=== PATIENT | male | born 1945 | race Native Hawaiian/Other Pacific Islander ===

== ENCOUNTER 2018-07-06 20:54 | Inpatient (IN) | payer MEDICARE ==
--- NOTE | 2018-07-06 21:34 | ED PDOC ---
Upper Extremity Pain/Injury Time Seen by Provider: 07/06/18 21:00 Chief Complaint (Nursing): Upper Extremity Problem/Injury Chief Complaint (Provider): Upper Extremity Problem/Injury History Per: Patient, Family History/Exam Limitations: no limitations Onset/Duration Of Symptoms: Hrs (x4-5) Current Symptoms Are (Timing): Still Present Additional Complaint(s): 73 y/o male with a PMHx of Atrial Fibrillation, HTN, hypercholesterolemia and DM presents to the ED with son for evaluation of severe left arm pain, onset 4 to 5 hours prior to arrival. Given patient's extensive medical history and questionable findings of ST elev on anterior leads, a Code Heart was called. Patient reports pain at onset was approximately an 8/10 and is associated with diaphoresis and abdominal discomfort. Patient reports of taking two Tylenol tablets with some relief of pain. Patient denies chest pain, cough and congestion. As per son, patient is taking Eliquis and metafrmin. Son reports patient is complaint with medications and took last took them earlier this morning and has not taken his second dose tonight. Son additionally reports the patient recently got his flu vaccination on Friday. PMD: Dr. Solis from [facility] Allergies: Naproxen Past Medical History Reviewed: Historical Data, Nursing Documentation, Vital Signs Vital Signs: Last Vital Signs Temp 97.9 F 07/06/18 21:08 Pulse 99 H 07/06/18 21:08 Resp 16 07/06/18 21:08 BP 146/86 07/06/18 21:08 Pulse Ox 100 07/06/18 21:08 - Medical History PMH: Atrial Fibrillation, Diabetes, HTN, Hypercholesterolemia - Surgical History Surgical History: No Surg Hx - Family History Family History: States: Unknown Family Hx - Social History Current smoker - smoking cessation education provided: No Alcohol: None Drugs: Denies - Allergies Allergies/Adverse Reactions: Allergies Allergy/AdvReac Type Severity Reaction Status Date / Time No Known Allergies Allergy Verified 07/06/18 21:01 Review of Systems ROS Statement: Except As Marked, All Systems Reviewed And Found Negative Constitutional: Positive for: Sweats ENT: Negative for: Nose Congestion Cardiovascular: Negative for: Chest Pain Respiratory: Negative for: Cough Gastrointestinal: Positive for: Abdominal Pain (discomfort) Musculoskeletal: Positive for: Arm Pain (left arm ) Physical Exam - Reviewed Nursing Documentation Reviewed: Yes Vital Signs Reviewed: Yes - Physical Exam Appears: Positive for: No Acute Distress Head Exam: Positive for: ATRAUMATIC, NORMOCEPHALIC Skin: Positive for: Normal Color, Warm, Dry Eye Exam: Positive for: Normal appearance, EOMI, PERRL ENT: Positive for: Normal ENT Inspection Neck: Positive for: Normal, Painless ROM Cardiovascular/Chest: Positive for: Chest Non Tender, Irregularly Irregular Respiratory: Positive for: Normal Breath Sounds. Negative for: Respiratory Dist ress Gastrointestinal/Abdominal: Positive for: Normal Exam, Soft. Negative for: Tenderness Back: Positive for: Normal Inspection. Negative for: L CVA Tenderness, R CVA Tenderness, Vertebral Tenderness Extremity: Positive for: Normal ROM. Negative for: Deformity Neurologic/Psych: Positive for: Alert, Oriented (x3). Negative for: Motor/Sensory Deficits - Laboratory Results Result Diagrams: 07/06/18 21:30 07/06/18 21:30 - ECG O2 Sat by Pulse Oximetry: 100 (RA) Pulse Ox Interpretation: Normal - Critical Care Total Time (In Min): 30 Medical Decision Making Medical Decision Making: Time: 2122 -- Code Heart Activated for possible ST elev Time: 2123 -- cath dr/Blow Torch Burner, Dr. Andrews made aware. however he doesnt believe its a code heart. states to just admit pt to ICU. code heart cancelled. Time: 2129 -- EKG -- CMP -- Troponin I -- Cardiology Consult -- CBC with differentials -- PTT -- Prothrombin Time -- CXR -- Aspirin Chewable 162 mg PO -- Lipitor 20 mg PO -- Lopressor 50 mg PO -- Plavix 300 mg PO -- Director Of Radiology -- Call Cardiology consult troponin elevated. rest of labs benign. Time: 2131 -- Spoke with Dr. Andrews who states patient is Non-STEMI and recommends patient to be admitted to the ICU after given asa, plavix, heparin, beta tierney. those meds ordered.. Time: 2239 -- Spoke to Dr. Parmjit phelps phone screener, regarding admission. dr richardson also aware. he is reference data expert. Patient to be admitted to the ICU for NSTEMI. pt and son at bedside aware and agreeable to plan. per dr andrews pt should prepar for cath tomorrow am. Scribe Attestation: Documented by Charis Taylor, acting as a scribe for Lake Hein MD. Provider Scribe Attestation: All medical record entries made by the Scribe were at my direction and personally dictated by me. I have reviewed the chart and agree that the record accurately reflects my personal performance of the history, physical exam, medical decision making, and the department course for this patient. I have also personally directed, reviewed, and agree with the discharge instructions and disposition. Disposition - Clinical Impression Clinical Impression: NSTEMI (non-ST elevated myocardial infarction) - Patient ED Disposition Is Patient to be Admitted: Yes Counseled Patient/Family Regarding: Studies Performed, Diagnosis - Disposition Disposition Time: 22:30 Condition: STABLE - Pt Status Changed To: Hospital Disposition Of: Inpatient - Admit Certification Admit to Inpatient:: After my assessment, the patient will require hospitalization for at least two midnights. This is because of the severity of symptoms shown, intensity of services needed, and/or the medical risk in this patient being treated as an outpatient.
[2018-07-06 21:35] LABS: BASO % 0.4 % (0.0-2.0); EOS % 0.2 % (0.0-4.0); HEMOGLOBIN 13.2 g/dL (12.0-18.0); LYMPH # 1.4 K/uL (1.0-4.3); LYMPH % 11.8 % (20.0-40.0); MEAN CELL VOLUME 92.3 fl (80.0-94.0); MEAN CORPUSCULAR HEMOGLOBIN 30.6 pg (27.0-31.0); MEAN CORPUSCULAR HGB CONC 33.1 g/dL (33.0-37.0); MEAN PLATELET VOLUME 8.4 fl (7.2-11.7); MONO # 0.3 K/uL (0.0-0.8); MONO % 2.3 % (0.0-10.0); NEUT # 9.8 K/uL (1.8-7.0); NEUT % 85.3 % (50.0-75.0); RBC 4.32 Mil/uL (4.40-5.90); RED CELL DISTRIBUTION WIDTH 13.5 % (11.5-14.5); WHITE BLOOD COUNT 11.5 K/uL (4.8-10.8)
[2018-07-06 21:45] LABS: BLOOD UREA NITROGEN 25 mg/dl (9-20); CALCIUM 9.8 mg/dL (8.4-10.2); GFR NON-AFRICAN AMERICAN > 60
[2018-07-06 21:57] LABS: ALB/GLOB RATIO 1.1 (1.0-2.1); ALBUMIN 4.6 g/dL (3.5-5.0); ALT/SGPT 13 U/L (21-72); AST/SGOT 113 U/L (17-59)
[2018-07-06 22:15] LABS: INR 1.1; PROTHROMBIN TIME 12.8 Seconds (9.8-13.1)
[2018-07-06 22:17] LABS: PARTIAL THROMBOPLASTIN TIME 36.3 Seconds (25.6-37.1)
[2018-07-06] MEDS ORDERED: Sod Polystyrene Sulf 15 gm/60 ml Susp PO ONE (22:32)
[2018-07-06] MEDS ORDERED: Sod Polystyrene Sulf 15 gm/60 ml Susp ONE (22:46)
[2018-07-06] MEDS ORDERED: Heparin 25,000units in D5W 25,000 UNITS/250 ML BAG IV SCH (23:00)
--- NOTE | 2018-07-06 23:30 | CP.PCM.CON ---
History of Present Illness - History of Present Illness History of Present Illness: CC: Arm pain/chest pain HPI: This is a 73 y/o male with MHx significant for A fib on Eliquis, HTN, HLD, DM2 and strong family history of CAD with MIs. He comes to the ED for severe L arm pain which started earlier this afternoon. Patient states the pain was severe, accompanied by diaphoresis, and some bloating/abdominal discomfort. D enies pain specifically in the chest, or SOB/BENTLEY. Patient did take some tylenol which provided some relief. Patient denies any similar symptoms otherwise recently. Denies f/c/cough/n/v/d. Patient did get fluvax last week. PMD: Will at [facility] ROS: 14 systems reviewed, negative other than HPI MHx: A fib on Eliquis, HTN, HLD, DM2 SHx: None Allergies: NKDA Medications: As per med rec Family Hx: Father and multiple brothers with CAD and MIs Social Hx: Lives with family, no tobacco, no EtOH Surrogate Dec Mkr: Past Patient History - Past Social History Smoking Status: Never Smoked - CARDIAC Hx Atrial Fibrillation: Yes Hx Hypercholesterolemia: Yes Hx Hypertension: Yes - ENDOCRINE/METABOLIC Hx Diabetes Mellitus Type 2: Yes - PSYCHIATRIC Hx Substance Use: No Meds Allergies/Adverse Reactions: Allergies Allergy/AdvReac Type Severity Reaction Status Date / Time No Known Allergies Allergy Verified 07/06/18 21:01 - Medications Medications: Current Medications Acetaminophen (Tylenol 325mg Tab) 650 mg PO Q6H PRN PRN Reason: Fever >100.4 F Acetaminophen (Tylenol 325mg Tab) 650 mg PO Q6H PRN PRN Reason: Pain, Mild (1-3) Aspirin (Ecotrin) 325 mg PO DAILY [facility] Atorvastatin Calcium (Lipitor) 40 mg PO DAILY [facility] Clopidogrel Bisulfate (Plavix) 75 mg PO DAILY [facility] Heparin Sodium/Dextrose (Heparin 25,000 Units/250ml In D5w) 25,000 units in 250 mls @ 7 mls/hr IV .Q24H [facility]; Protocol Insulin Human Lispro (Humalog) 0 units SC ACHS [facility]; Protocol Metoprolol Tartrate (Lopressor) 50 mg PO Q12 [facility] Nitroglycerin (Nitrostat Sl Tab) 0.4 mg SL Q5M PRN PRN Reason: chest pain Ondansetron HCl (Zofran Inj) 4 mg IVP Q6H PRN PRN Reason: Nausea/Vomiting Physical Exam - Constitutional Appears: No Acute Distress - Head Exam Head Exam: ATRAUMATIC, NORMOCEPHALIC - Eye Exam Eye Exam: EOMI, PERRL - ENT Exam ENT Exam: Mucous Membranes Moist - Neck Exam Neck exam: Positive for: Full Rom - Respiratory Exam Respiratory Exam: Clear to Auscultation Bilateral, NORMAL BREATHING PATTERN - Cardiovascular Exam Cardiovascular Exam: REGULAR RHYTHM, +S1, +S2 - GI/Abdominal Exam GI & Abdominal Exam: Normal Bowel Sounds, Soft - Extremities Exam Extremities exam: Positive for: full ROM, normal inspection - Neurological Exam Neurological exam: Alert, CN II-XII Intact, Oriented x3 - Psychiatric Exam Psychiatric exam: Normal Affect, Normal Mood - Skin Skin Exam: Dry, Warm Results - Vital Signs Recent Vital Signs: Last Vital Signs Temp 97.9 F 07/06/18 21:08 Pulse 89 07/06/18 22:59 Resp 16 07/06/18 21:08 BP 158/63 H 07/06/18 22:59 Pulse Ox 100 07/06/18 22:46 - Labs Result Diagrams: 07/06/18 21:30 07/06/18 21:30 Labs: Laboratory Results - last 24 hr 07/06/18 07/06/18 07/06/18 21:24 21:30 21:30 WBC 11.5 H RBC 4.32 L Hgb 13.2 Hct 39.9 MCV 92.3 MCH 30.6 MCHC 33.1 RDW 13.5 Plt Count 217 MPV 8.4 Neut % (Auto) 85.3 H Lymph % (Auto) 11.8 L [place] % (Auto) 2.3 Eos % (Auto) 0.2 Baso % (Auto) 0.4 Neut # (Auto) 9.8 H Lymph # (Auto) 1.4 [place] # (Auto) 0.3 Eos # (Auto) 0.0 Baso # (Auto) 0.0 PT INR APTT Sodium 137 Potassium 5.7 H Chloride 101 Carbon Dioxide 30 Anion Gap 12 BUN 25 H Creatinine 1.1 Est GFR ( Amer) > 60 Est GFR (Non-Af Amer) > 60 POC Glucose (mg/dL) 198 H Random Glucose 206 H Calcium 9.8 Total Bilirubin 1.6 H AST 113 H ALT 13 L Alkaline Phosphatase 99 Troponin I 2.3300 H* Total Protein 8.8 H Albumin 4.6 Globulin 4.2 H Albumin/Globulin Ratio 1.1 07/06/18 21:30 WBC RBC Hgb Hct MCV MCH MCHC RDW Plt Count MPV Neut % (Auto) Lymph % (Auto) [place] % (Auto) Eos % (Auto) Baso % (Auto) Neut # (Auto) Lymph # (Auto) [place] # (Auto) Eos # (Auto) Baso # (Auto) PT 12.8 INR 1.1 APTT 36.3 Sodium Potassium Chloride Carbon Dioxide Anion Gap BUN Creatinine Est GFR ( Amer) Est GFR (Non-Af Amer) POC Glucose (mg/dL) Random Glucose Calcium Total Bilirubin AST ALT Alkaline Phosphatase Troponin I Total Protein Albumin Globulin Albumin/Globulin Ratio - EKG Data EKG Interpreted by: Myself Rate: Normal - EKG Data EKG comments: Appears to have ST elevations in 2 anterior/septal leads - Imaging and Cardiology Chest x-ray Status: Image reviewed by me (no significant findings) Assessment & Plan (1) NSTEMI (non-ST elevated myocardial infarction) Assessment and Plan: 73 y/o male with HTN, HLD, A fib, DM2, and strong family Hx of CAD/OH presents with what appears to be c/w NSTEMI per cardiology. -Admit to ICU -AM EKG -Serial troponins -Started on heparin gtt in ER -Patient ordered Plavix in ER, but refused the initial Plavix load-- I discussed the importance of the loading dose with him; continue 75 mg daily -Cont ASA, b-tierney, statin -Accucheck and SSI for now for DM2 -Continue control of BP -Consult cardiology -- [facility] aware -Patient is on full dose heparin, and does not require further DVT PPx Status: Acute
[2018-07-07] MEDS ORDERED: Simethicone 80 mg Chewtab PO PRN (01:15)
[2018-07-07] MEDS: Heparin 25,000units in D5W 25,000 UNITS/250 ML BAG IV SCH (01:57)
[2018-07-07] MEDS ORDERED: DiphenhydrAMINE 50 mg/ml Inj IVP ONE (02:43)
[2018-07-07] MEDS ORDERED: DiphenhydrAMINE 50 mg/ml Inj ONE (02:47)
[2018-07-07 06:06] LABS: HEMOGLOBIN 12.7 g/dL (12.0-18.0); MEAN CELL VOLUME 91.9 fl (80.0-94.0); MEAN CORPUSCULAR HEMOGLOBIN 30.8 pg (27.0-31.0); MEAN CORPUSCULAR HGB CONC 33.5 g/dL (33.0-37.0); RBC 4.12 Mil/uL (4.40-5.90); RED CELL DISTRIBUTION WIDTH 13.7 % (11.5-14.5)
[2018-07-07 06:46] LABS: BLOOD UREA NITROGEN 23 mg/dl (9-20); CALCIUM 9.5 mg/dL (8.4-10.2); GFR NON-AFRICAN AMERICAN > 60
--- NOTE | 2018-07-07 06:50 | CARD ---
APPROVED REPORT Date of service: 07/06/2018 EKG Measurement Heart [id number] <Conclusion> Atrial fibrillation Low voltage QRS Nonspecific ST abnormality Abnormal ECG
--- NOTE | 2018-07-07 06:50 | CARD ---
APPROVED REPORT Date of service: 07/07/2018 EKG Measurement Heart [id number] <Conclusion> Atrial fibrillation Low voltage QRS Cannot rule out Anteroseptal infarct, age undetermined T wave abnormality, consider lateral ischemia Abnormal ECG
[2018-07-07] MEDS ORDERED: Insulin Lispro (humaLOG) 100 Units/ml Inj SC SCH (07:30)
--- NOTE | 2018-07-07 09:56 | RAD ---
Date of service: 07/06/2018 PROCEDURE: CHEST RADIOGRAPH, 1 VIEW HISTORY: LUE pain COMPARISON: None available. FINDINGS: LUNGS: The lungs are well inflated. There is airspace disease in the right middle lobe. PLEURA: No pneumothorax or pleural fluid seen. CARDIOVASCULAR: The heart is normal in size. Atherosclerotic aortic arch calcifications are present. OSSEOUS STRUCTURES: No significant abnormalities. VISUALIZED UPPER ABDOMEN: Normal. OTHER FINDINGS: None. IMPRESSION: Airspace disease in the right lower lobe may represent atelectasis or pneumonia. Follow-up is advised.
[2018-07-07] MEDS: Aspirin 325 mg EC Tablets PO SCH (10:18)
--- NOTE | 2018-07-07 11:40 | CP.PCM.CON ---
Past Patient History - Past Medical History & Family History Past Medical History?: Yes - Past Social History Alcohol: None Drugs: Denies - CARDIAC Hx Atrial Fibrillation: Yes Hx Hypercholesterolemia: Yes Hx Hypertension: Yes - PULMONARY Hx Respiratory Disorders: No - NEUROLOGICAL Hx Neurological Disorder: No - HEENT Hx HEENT Problems: Yes Other/Comment: wears glasses - RENAL Hx Chronic Kidney Disease: No - ENDOCRINE/METABOLIC Hx Endocrine Disorders: Yes Hx Diabetes Mellitus Type 2: Yes - HEMATOLOGICAL/ONCOLOGICAL Hx Blood Disorders: No - INTEGUMENTARY Hx Dermatological Problems: No - MUSCULOSKELETAL/RHEUMATOLOGICAL Hx Musculoskeletal Disorders: No Hx Falls: No - GASTROINTESTINAL Hx Gastrointestinal Disorders: No - GENITOURINARY/GYNECOLOGICAL Hx Genitourinary Disorders: No - PSYCHIATRIC Hx Psychophysiologic Disorder: No Hx Substance Use: No - SURGICAL HISTORY Hx Surgeries: Yes Other/Comment: dental work - ANESTHESIA Hx Anesthesia: Yes Hx Anesthesia Reactions: No Meds Allergies/Adverse Reactions: Allergies Allergy/AdvReac Type Severity Reaction Status Date / Time No Known Allergies Allergy Verified 07/06/18 21:01 - Medications Medications: Current Medications Acetaminophen (Tylenol 325mg Tab) 650 mg PO Q6H PRN PRN Reason: Fever >100.4 F Acetaminophen (Tylenol 325mg Tab) 650 mg PO Q6H PRN PRN Reason: Pain, Mild (1-3) Aspirin (Ecotrin) 325 mg PO DAILY [facility] Last Admin: 07/07/18 10:18 Dose: 325 mg Atorvastatin Calcium (Lipitor) 40 mg PO DAILY [facility] Last Admin: 07/07/18 10:19 Dose: 40 mg Clopidogrel Bisulfate (Plavix) 75 mg PO DAILY [facility] Last Admin: 07/07/18 10:20 Dose: 75 mg Heparin Sodium/Dextrose (Heparin 25,000 Units/250ml In D5w) 25,000 units in 250 mls @ 7 mls/hr IV .Q24H [facility]; Protocol Last Titration: 07/07/18 10:18 Dose: 4 mls/hr Insulin Human Lispro (Humalog) 0 units SC ACHS [facility]; Protocol Last Admin: 07/07/18 11:34 Dose: Not Given Metoprolol Tartrate (Lopressor) 50 mg PO Q12 [facility] Last Admin: 07/07/18 10:20 Dose: 50 mg Nitroglycerin (Nitrostat Sl Tab) 0.4 mg SL Q5M PRN PRN Reason: chest pain Ondansetron HCl (Zofran Inj) 4 mg IVP Q6H PRN PRN Reason: Nausea/Vomiting Simethicone (Mylicon Chew Tab) 80 mg PO Q8 PRN PRN Reason: Flatulence Last Admin: 07/07/18 01:56 Dose: 80 mg Results - Vital Signs Recent Vital Signs: Last Vital Signs Temp 98.9 F 07/07/18 08:00 Pulse 75 07/07/18 10:20 Resp 18 07/07/18 10:00 BP 122/57 L 07/07/18 10:20 Pulse Ox 97 07/07/18 10:00 - Labs Result Diagrams: 07/07/18 04:45 07/07/18 04:45 Labs: Laboratory Results - last 24 hr 07/06/18 07/06/18 07/06/18 21:24 21:30 21:30 WBC 11.5 H RBC 4.32 L Hgb 13.2 Hct 39.9 MCV 92.3 MCH 30.6 MCHC 33.1 RDW 13.5 Plt Count 217 MPV 8.4 Neut % (Auto) 85.3 H Lymph % (Auto) 11.8 L [place] % (Auto) 2.3 Eos % (Auto) 0.2 Baso % (Auto) 0.4 Neut # (Auto) 9.8 H Lymph # (Auto) 1.4 [place] # (Auto) 0.3 Eos # (Auto) 0.0 Baso # (Auto) 0.0 PT INR APTT Sodium 137 Potassium 5.7 H Chloride 101 Carbon Dioxide 30 Anion Gap 12 BUN 25 H Creatinine 1.1 Est GFR ( Amer) > 60 Est GFR (Non-Af Amer) > 60 POC Glucose (mg/dL) 198 H Random Glucose 206 H Calcium 9.8 Total Bilirubin 1.6 H AST 113 H ALT 13 L Alkaline Phosphatase 99 Troponin I 2.3300 H* Total Protein 8.8 H Albumin 4.6 Globulin 4.2 H Albumin/Globulin Ratio 1.1 07/06/18 07/07/18 07/07/18 21:30 00:15 04:45 WBC RBC Hgb Hct MCV MCH MCHC RDW Plt Count MPV Neut % (Auto) Lymph % (Auto) [place] % (Auto) Eos % (Auto) Baso % (Auto) Neut # (Auto) Lymph # (Auto) [place] # (Auto) Eos # (Auto) Baso # (Auto) PT 12.8 INR 1.1 APTT 36.3 Sodium 136 Potassium 3.9 Chloride 96 L Carbon Dioxide 30 Anion Gap 14 BUN 23 H Creatinine 1.1 Est GFR ( Amer) > 60 Est GFR (Non-Af Amer) > 60 POC Glucose (mg/dL) 213 H Random Glucose 142 H Calcium 9.5 Total Bilirubin AST ALT Alkaline Phosphatase Troponin I 17.7000 H* Total Protein Albumin Globulin Albumin/Globulin Ratio 07/07/18 07/07/18 04:45 04:45 WBC 12.0 H RBC 4.12 L Hgb 12.7 Hct 37.9 MCV 91.9 MCH 30.8 MCHC 33.5 RDW 13.7 Plt Count 195 MPV Neut % (Auto) Lymph % (Auto) [place] % (Auto) Eos % (Auto) Baso % (Auto) Neut # (Auto) Lymph # (Auto) [place] # (Auto) Eos # (Auto) Baso # (Auto) PT INR APTT 161.3 H Sodium Potassium Chloride Carbon Dioxide Anion Gap BUN Creatinine Est GFR ( Amer) Est GFR (Non-Af Amer) POC Glucose (mg/dL) Random Glucose Calcium Total Bilirubin AST ALT Alkaline Phosphatase Troponin I Total Protein Albumin Globulin Albumin/Globulin Ratio
--- NOTE | 2018-07-07 12:18 | CP.PCM.HP ---
History of Present Illness - History of Present Illness History of Present Illness: 73 y/o male with MHx significant for A fib on Eliquis, HTN, HLD, DM2 and strong family history of CAD with MIs. He presents to the ED for severe L arm pain which started earlier this afternoon. Patient states the pain was severe, accom panied by diaphoresis, and some bloating/abdominal discomfort. Denies chest pain, SOB/BENTLEY. Patient denies any similar symptoms otherwise recently. Denies f/c/cough/n/v/d. PMD: Will at [facility] MHx: A fib on Eliquis, HTN, HLD, DM2 SHx: None Allergies: NKDA Medications: As per med rec Family Hx: Father and multiple brothers with CAD and MIs Social Hx: no tobacco, no EtOH or ilicit drugs Surrogate Dec Mkr: Present on Admission - Present on Admission Any Indicators Present on Admission: No Review of Systems - Review of Systems All systems: reviewed and no additional remarkable complaints except (HPI) Past Patient History - Past Medical History & Family History Past Medical History?: Yes - Past Social History Alcohol: None Drugs: Denies - CARDIAC Hx Atrial Fibrillation: Yes Hx Hypercholesterolemia: Yes Hx Hypertension: Yes - PULMONARY Hx Respiratory Disorders: No - NEUROLOGICAL Hx Neurological Disorder: No - HEENT Hx HEENT Problems: Yes Other/Comment: wears glasses - RENAL Hx Chronic Kidney Disease: No - ENDOCRINE/METABOLIC Hx Endocrine Disorders: Yes Hx Diabetes Mellitus Type 2: Yes - HEMATOLOGICAL/ONCOLOGICAL Hx Blood Disorders: No - INTEGUMENTARY Hx Dermatological Problems: No - MUSCULOSKELETAL/RHEUMATOLOGICAL Hx Musculoskeletal Disorders: No Hx Falls: No - GASTROINTESTINAL Hx Gastrointestinal Disorders: No - GENITOURINARY/GYNECOLOGICAL Hx Genitourinary Disorders: No - PSYCHIATRIC Hx Psychophysiologic Disorder: No Hx Substance Use: No - SURGICAL HISTORY Hx Surgeries: Yes Other/Comment: dental work - ANESTHESIA Hx Anesthesia: Yes Hx Anesthesia Reactions: No Meds Allergies/Adverse Reactions: Allergies Allergy/AdvReac Type Severity Reaction Status Date / Time No Known Allergies Allergy Verified 07/06/18 21:01 Physical Exam - Constitutional Appears: No Acute Distress - Eye Exam Eye Exam: EOMI, PERRL - Respiratory Exam Respiratory Exam: Clear to Auscultation Bilateral. absent: Chest Wall Tenderness - Cardiovascular Exam Cardiovascular Exam: Irregular Rhythm, +S1, +S2 - GI/Abdominal Exam GI & Abdominal Exam: Soft. absent: Distended, Tenderness - Extremities Exam Extremities exam: Negative for: calf tenderness, pedal edema - Neurological Exam Neurological exam: Alert, Oriented x3 - Skin Skin Exam: Dry, Warm Results - Vital Signs Recent Vital Signs: Last Vital Signs Temp 98.9 F 07/07/18 08:00 Pulse 75 07/07/18 10:20 Resp 18 07/07/18 10:00 BP 122/57 L 07/07/18 10:20 Pulse Ox 97 07/07/18 10:00 - Labs Result Diagrams: 07/07/18 04:45 07/07/18 04:45 Labs: Laboratory Results - last 24 hr 07/06/18 07/06/18 07/06/18 21:24 21:30 21:30 WBC 11.5 H RBC 4.32 L Hgb 13.2 Hct 39.9 MCV 92.3 MCH 30.6 MCHC 33.1 RDW 13.5 Plt Count 217 MPV 8.4 Neut % (Auto) 85.3 H Lymph % (Auto) 11.8 L [place] % (Auto) 2.3 Eos % (Auto) 0.2 Baso % (Auto) 0.4 Neut # (Auto) 9.8 H Lymph # (Auto) 1.4 [place] # (Auto) 0.3 Eos # (Auto) 0.0 Baso # (Auto) 0.0 PT INR APTT Sodium 137 Potassium 5.7 H Chloride 101 Carbon Dioxide 30 Anion Gap 12 BUN 25 H Creatinine 1.1 Est GFR ( Amer) > 60 Est GFR (Non-Af Amer) > 60 POC Glucose (mg/dL) 198 H Random Glucose 206 H Calcium 9.8 Total Bilirubin 1.6 H AST 113 H ALT 13 L Alkaline Phosphatase 99 Troponin I 2.3300 H* Total Protein 8.8 H Albumin 4.6 Globulin 4.2 H Albumin/Globulin Ratio 1.1 07/06/18 07/07/18 07/07/18 21:30 00:15 04:45 WBC RBC Hgb Hct MCV MCH MCHC RDW Plt Count MPV Neut % (Auto) Lymph % (Auto) [place] % (Auto) Eos % (Auto) Baso % (Auto) Neut # (Auto) Lymph # (Auto) [place] # (Auto) Eos # (Auto) Baso # (Auto) PT 12.8 INR 1.1 APTT 36.3 Sodium 136 Potassium 3.9 Chloride 96 L Carbon Dioxide 30 Anion Gap 14 BUN 23 H Creatinine 1.1 Est GFR ( Amer) > 60 Est GFR (Non-Af Amer) > 60 POC Glucose (mg/dL) 213 H Random Glucose 142 H Calcium 9.5 Total Bilirubin AST ALT Alkaline Phosphatase Troponin I 17.7000 H* Total Protein Albumin Globulin Albumin/Globulin Ratio 07/07/18 07/07/18 07/07/18 04:45 04:45 11:24 WBC 12.0 H RBC 4.12 L Hgb 12.7 Hct 37.9 MCV 91.9 MCH 30.8 MCHC 33.5 RDW 13.7 Plt Count 195 MPV Neut % (Auto) Lymph % (Auto) [place] % (Auto) Eos % (Auto) Baso % (Auto) Neut # (Auto) Lymph # (Auto) [place] # (Auto) Eos # (Auto) Baso # (Auto) PT INR APTT 161.3 H Sodium Potassium Chloride Carbon Dioxide Anion Gap BUN Creatinine Est GFR ( Amer) Est GFR (Non-Af Amer) POC Glucose (mg/dL) Random Glucose Calcium Total Bilirubin AST ALT Alkaline Phosphatase Troponin I 24.5000 H* Total Protein Albumin Globulin Albumin/Globulin Ratio Assessment & Plan - Assessment and Plan (Free Text) Assessment: 73 y/o male with HTN, HLD, A fib, DM2, and strong family Hx of CAD/[place] admitted due to NSTEMI. Plan: - denies chest pain, VSS - Serial troponins trending up - Started on heparin gtt in ER - on Plavix - Cont ASA, b-tierney, statin - Consult cardiology : Dr andrews on board - plan for cath, pt going to [facility] seen and examined with Dr Parnell
--- NOTE | 2018-07-07 12:57 | CP.CCUPN ---
CCU Objective - Vital Signs / Intake & Output Vital Signs (Last 4 hours): Vital Signs Temp Pulse Resp BP Pulse Ox 07/07/18 12:00 98.5 F 79 16 132/92 H 99 07/07/18 10:20 75 122/57 L 07/07/18 10:00 63 18 122/57 L 97 Intake and Output (Last 8hrs): Intake & Output 07/06/18 07/07/18 07/07/18 22:59 06:59 14:59 Intake Total 0 50 Balance 0 50 Weight 127 lb 127 lb Intake: IV 0 50 - Medications Active Medications: Active Medications Generic Name Dose Route Start Last Admin Trade Name Freq PRN Reason Stop Dose Admin Acetaminophen 650 mg 07/06/18 22:49 Tylenol 325mg Tab PO Q6H PRN Fever >100.4 F Acetaminophen 650 mg 07/06/18 22:49 Tylenol 325mg Tab PO Q6H PRN Pain, Mild (1-3) Aspirin 325 mg 07/07/18 09:00 07/07/18 10:18 Ecotrin PO 325 mg DAILY [facility] Administration Atorvastatin Calcium 40 mg 07/07/18 09:00 07/07/18 10:19 Lipitor PO 40 mg DAILY [facility] Administration Clopidogrel Bisulfate 75 mg 07/07/18 09:00 07/07/18 10:20 Plavix PO 75 mg DAILY [facility] Administration Heparin Sodium/Dextrose 25,000 units in 250 mls @ 7 mls/hr 07/06/18 23:00 07/07/18 10:18 Heparin 25,000 Units/250ml In D5w IV 4 mls/hr .Q24H [facility] Titration Protocol Insulin Human Lispro 0 units 07/07/18 07:30 07/07/18 11:34 Humalog SC Not Given ACHS [facility] Protocol Metoprolol Tartrate 50 mg 07/07/18 09:00 07/07/18 10:20 Lopressor PO 50 mg Q12 [facility] Administration Nitroglycerin 0.4 mg 07/06/18 22:44 Nitrostat Sl Tab SL Q5M PRN chest pain Ondansetron HCl 4 mg 07/06/18 22:49 Zofran Inj IVP Q6H PRN Nausea/Vomiting Simethicone 80 mg 07/07/18 01:15 07/07/18 01:56 Mylicon Chew Tab PO 80 mg Q8 PRN Administration Flatulence - Patient Studies Lab Studies: Lab Studies 07/07/18 07/07/18 07/07/18 Range/Units 11:24 04:45 04:45 WBC 12.0 H (4.8-10.8) K/uL RBC 4.12 L (4.40-5.90) Mil/uL Hgb 12.7 (12.0-18.0) g/dL Hct 37.9 (35.0-51.0) % MCV 91.9 (80.0-94.0) fl MCH 30.8 (27.0-31.0) pg MCHC 33.5 (33.0-37.0) g/dL RDW 13.7 (11.5-14.5) % Plt Count 195 (130-400) K/uL MPV (7.2-11.7) fl Neut % (Auto) (50.0-75.0) % Lymph % (Auto) (20.0-40.0) % [place] % (Auto) (0.0-10.0) % Eos % (Auto) (0.0-4.0) % Baso % (Auto) (0.0-2.0) % Neut # (Auto) (1.8-7.0) K/uL Lymph # (Auto) (1.0-4.3) K/uL [place] # (Auto) (0.0-0.8) K/uL Eos # (Auto) (0.0-0.7) K/uL Baso # (Auto) (0.0-0.2) K/uL PT (9.8-13.1) Seconds INR APTT 161.3 H (25.6-37.1) Seconds Sodium (132-148) mmol/l Potassium (3.6-5.0) MMOL/L Chloride (98-107) mmol/L Carbon Dioxide (22-30) mmol/L Anion Gap (10-20) BUN (9-20) mg/dl Creatinine (0.8-1.5) mg/dl Est GFR ( Amer) Est GFR (Non-Af Amer) POC Glucose (mg/dL) (65-110) mg/dL Random Glucose (75-110) mg/dL Calcium (8.4-10.2) mg/dL Total Bilirubin (0.2-1.3) mg/dl AST (17-59) U/L ALT (21-72) U/L Alkaline Phosphatase (38-126) U/L Troponin I 24.5000 H* (0.00-0.120) ng/mL Total Protein (6.3-8.2) G/DL Albumin (3.5-5.0) g/dL Globulin (2.2-3.9) gm/dL Albumin/Globulin Ratio (1.0-2.1) 07/07/18 07/07/18 07/06/18 Range/Units 04:45 00:15 21:30 WBC (4.8-10.8) K/uL RBC (4.40-5.90) Mil/uL Hgb (12.0-18.0) g/dL Hct (35.0-51.0) % MCV (80.0-94.0) fl MCH (27.0-31.0) pg MCHC (33.0-37.0) g/dL RDW (11.5-14.5) % Plt Count (130-400) K/uL MPV (7.2-11.7) fl Neut % (Auto) (50.0-75.0) % Lymph % (Auto) (20.0-40.0) % [place] % (Auto) (0.0-10.0) % Eos % (Auto) (0.0-4.0) % Baso % (Auto) (0.0-2.0) % Neut # (Auto) (1.8-7.0) K/uL Lymph # (Auto) (1.0-4.3) K/uL [place] # (Auto) (0.0-0.8) K/uL Eos # (Auto) (0.0-0.7) K/uL Baso # (Auto) (0.0-0.2) K/uL PT 12.8 (9.8-13.1) Seconds INR 1.1 APTT 36.3 (25.6-37.1) Seconds Sodium 136 (132-148) mmol/l Potassium 3.9 (3.6-5.0) MMOL/L Chloride 96 L (98-107) mmol/L Carbon Dioxide 30 (22-30) mmol/L Anion Gap 14 (10-20) BUN 23 H (9-20) mg/dl Creatinine 1.1 (0.8-1.5) mg/dl Est GFR ( Amer) > 60 Est GFR (Non-Af Amer) > 60 POC Glucose (mg/dL) 213 H (65-110) mg/dL Random Glucose 142 H (75-110) mg/dL Calcium 9.5 (8.4-10.2) mg/dL Total Bilirubin (0.2-1.3) mg/dl AST (17-59) U/L ALT (21-72) U/L Alkaline Phosphatase (38-126) U/L Troponin I 17.7000 H* (0.00-0.120) ng/mL Total Protein (6.3-8.2) G/DL Albumin (3.5-5.0) g/dL Globulin (2.2-3.9) gm/dL Albumin/Globulin Ratio (1.0-2.1) 07/06/18 07/06/18 07/06/18 Range/Units 21:30 21:30 21:24 WBC 11.5 H (4.8-10.8) K/uL RBC 4.32 L (4.40-5.90) Mil/uL Hgb 13.2 (12.0-18.0) g/dL Hct 39.9 (35.0-51.0) % MCV 92.3 (80.0-94.0) fl MCH 30.6 (27.0-31.0) pg MCHC 33.1 (33.0-37.0) g/dL RDW 13.5 (11.5-14.5) % Plt Count 217 (130-400) K/uL MPV 8.4 (7.2-11.7) fl Neut % (Auto) 85.3 H (50.0-75.0) % Lymph % (Auto) 11.8 L (20.0-40.0) % [place] % (Auto) 2.3 (0.0-10.0) % Eos % (Auto) 0.2 (0.0-4.0) % Baso % (Auto) 0.4 (0.0-2.0) % Neut # (Auto) 9.8 H (1.8-7.0) K/uL Lymph # (Auto) 1.4 (1.0-4.3) K/uL [place] # (Auto) 0.3 (0.0-0.8) K/uL Eos # (Auto) 0.0 (0.0-0.7) K/uL Baso # (Auto) 0.0 (0.0-0.2) K/uL PT (9.8-13.1) Seconds INR APTT (25.6-37.1) Seconds Sodium 137 (132-148) mmol/l Potassium 5.7 H (3.6-5.0) MMOL/L Chloride 101 (98-107) mmol/L Carbon Dioxide 30 (22-30) mmol/L Anion Gap 12 (10-20) BUN 25 H (9-20) mg/dl Creatinine 1.1 (0.8-1.5) mg/dl Est GFR ( Amer) > 60 Est GFR (Non-Af Amer) > 60 POC Glucose (mg/dL) 198 H (65-110) mg/dL Random Glucose 206 H (75-110) mg/dL Calcium 9.8 (8.4-10.2) mg/dL Total Bilirubin 1.6 H (0.2-1.3) mg/dl AST 113 H (17-59) U/L ALT 13 L (21-72) U/L Alkaline Phosphatase 99 (38-126) U/L Troponin I 2.3300 H* (0.00-0.120) ng/mL Total Protein 8.8 H (6.3-8.2) G/DL Albumin 4.6 (3.5-5.0) g/dL Globulin 4.2 H (2.2-3.9) gm/dL Albumin/Globulin Ratio 1.1 (1.0-2.1) Laboratory Results - last 24 hr 07/06/18 07/06/18 07/06/18 21:24 21:30 21:30 WBC 11.5 H RBC 4.32 L Hgb 13.2 Hct 39.9 MCV 92.3 MCH 30.6 MCHC 33.1 RDW 13.5 Plt Count 217 MPV 8.4 Neut % (Auto) 85.3 H Lymph % (Auto) 11.8 L [place] % (Auto) 2.3 Eos % (Auto) 0.2 Baso % (Auto) 0.4 Neut # (Auto) 9.8 H Lymph # (Auto) 1.4 [place] # (Auto) 0.3 Eos # (Auto) 0.0 Baso # (Auto) 0.0 PT INR APTT Sodium 137 Potassium 5.7 H Chloride 101 Carbon Dioxide 30 Anion Gap 12 BUN 25 H Creatinine 1.1 Est GFR ( Amer) > 60 Est GFR (Non-Af Amer) > 60 POC Glucose (mg/dL) 198 H Random Glucose 206 H Calcium 9.8 Total Bilirubin 1.6 H AST 113 H ALT 13 L Alkaline Phosphatase 99 Troponin I 2.3300 H* Total Protein 8.8 H Albumin 4.6 Globulin 4.2 H Albumin/Globulin Ratio 1.1 07/06/18 07/07/18 07/07/18 21:30 00:15 04:45 WBC RBC Hgb Hct MCV MCH MCHC RDW Plt Count MPV Neut % (Auto) Lymph % (Auto) [place] % (Auto) Eos % (Auto) Baso % (Auto) Neut # (Auto) Lymph # (Auto) [place] # (Auto) Eos # (Auto) Baso # (Auto) PT 12.8 INR 1.1 APTT 36.3 Sodium 136 Potassium 3.9 Chloride 96 L Carbon Dioxide 30 Anion Gap 14 BUN 23 H Creatinine 1.1 Est GFR ( Amer) > 60 Est GFR (Non-Af Amer) > 60 POC Glucose (mg/dL) 213 H Random Glucose 142 H Calcium 9.5 Total Bilirubin AST ALT Alkaline Phosphatase Troponin I 17.7000 H* Total Protein Albumin Globulin Albumin/Globulin Ratio 07/07/18 07/07/18 07/07/18 04:45 04:45 11:24 WBC 12.0 H RBC 4.12 L Hgb 12.7 Hct 37.9 MCV 91.9 MCH 30.8 MCHC 33.5 RDW 13.7 Plt Count 195 MPV Neut % (Auto) Lymph % (Auto) [place] % (Auto) Eos % (Auto) Baso % (Auto) Neut # (Auto) Lymph # (Auto) [place] # (Auto) Eos # (Auto) Baso # (Auto) PT INR APTT 161.3 H Sodium Potassium Chloride Carbon Dioxide Anion Gap BUN Creatinine Est GFR ( Amer) Est GFR (Non-Af Amer) POC Glucose (mg/dL) Random Glucose Calcium Total Bilirubin AST ALT Alkaline Phosphatase Troponin I 24.5000 H* Total Protein Albumin Globulin Albumin/Globulin Ratio EKG/Cardiology Studies: Cardiology / EKG Studies 07/06/18 21:22 ELECTROCARDIOGRAM Stat Comment: Mode Of Transportation: Reason For Exam: L arm pain 07/07/18 07:00 EKG [ELECTROCARDIOGRAM] Routine Comment: for AM Mode Of Transportation: Reason For Exam: NSTEMI Fingerstick Blood Sugar Results: 116 Assessment/Plan (1) NSTEMI (non-ST elevated myocardial infarction) Assessment and plan: 73 y/o male with MHx significant for A fib on Eliquis, HTN, HLD, DM2 and strong family history of CAD with MIs. p/w NSTEMI. Neuro: alert and oriented x 3 Pulm: breathing spontaneously on room air CV: hemodynamically stable, continue ASA, IV heparin gtt. patient going for cath today. Cardio - Dr. More Hem: no acute issues Renal: no acute issues, will monitor urine output Endo: DM type 2, SISS for coverage GI: NPO for cath ID: no acute issues DVT proph - heparin gtt GI proph - protonix Code status - full code Critical Care Time spent 35 minutes Multi-disciplinary rounds were performed with house staff, nursing, speech therapy, respiratory therapy, pharmacy and nutrition with integrated input from the primary team/attending and other consulting services. The documented time i s cumulative and includes review of patient data/exams/labs/chart review and examination of the patient on rounds and throughout the day; time is exclusive of any procedures or teaching time. Current Visit: Yes Status: Acute
[2018-07-07] MEDS: Insulin Lispro (humaLOG) 100 Units/ml Inj SC SCH (21:10)
[2018-07-08] MEDS: Heparin 25,000units in D5W 25,000 UNITS/250 ML BAG IV SCH (00:24)
[2018-07-08 06:01] LABS: HEMOGLOBIN 12.2 g/dL (12.0-18.0); MEAN CELL VOLUME 91.9 fl (80.0-94.0); MEAN CORPUSCULAR HEMOGLOBIN 31.1 pg (27.0-31.0); MEAN CORPUSCULAR HGB CONC 33.8 g/dL (33.0-37.0); RBC 3.92 Mil/uL (4.40-5.90); RED CELL DISTRIBUTION WIDTH 13.8 % (11.5-14.5); WHITE BLOOD COUNT 15.8 K/uL (4.8-10.8)
[2018-07-08 06:15] LABS: BLOOD UREA NITROGEN 23 mg/dl (9-20); CALCIUM 9.3 mg/dL (8.4-10.2); GFR NON-AFRICAN AMERICAN 54
[2018-07-08] MEDS: Aspirin 325 mg EC Tablets PO SCH (08:27)
[2018-07-08 10:38] VITALS: BP 126/66; PULSE 76; RESP 12; TEMP 98.2; O2SAT 98
[2018-07-08] MEDS: Insulin Lispro (humaLOG) 100 Units/ml Inj SC SCH (12:00)
== END 2018-07-08 13:16 | disposition home or self-care (01) | DRG 247 ==
LOC: H.ER 20:54 → H.ICU/CCU 22:30
PROVIDERS: ADMIT Family Medicine; ATTEND Family Medicine
PROC: 4A023N7 Measurement of Cardiac Sampling and Pressure, Left Heart, Percutaneous Approach (ICD-10-PCS; principal; 2018-07-07)
PROC: 027034Z Dilation of Coronary Artery, One Artery with Drug-eluting Intraluminal Device, Percutaneous Approach (ICD-10-PCS; 2018-07-07)
PROC: B216YZZ Fluoroscopy of Right and Left Heart using Other Contrast (ICD-10-PCS; 2018-07-07)
PROC: B210YZZ Fluoroscopy of Single Coronary Artery using Other Contrast (ICD-10-PCS; 2018-07-07)
PROC: B240ZZ3 Ultrasonography of Single Coronary Artery, Intravascular (ICD-10-PCS; 2018-07-07)
DX: I21.4 Non-ST elevation (NSTEMI) myocardial infarction (principal); E11.9 Type 2 diabetes mellitus without complications; E78.00 Pure hypercholesterolemia, unspecified; E78.5 Hyperlipidemia, unspecified; I10 Essential (primary) hypertension; Z82.49 Family history of ischemic heart disease and other diseases of the circulatory system; Z79.01 Long term (current) use of anticoagulants; I48.0 Paroxysmal atrial fibrillation; I25.10 Atherosclerotic heart disease of native coronary artery without angina pectoris